=== PATIENT | male | born 1945 | race African-American/Black ===

== ENCOUNTER 2017-11-15 07:08 | Inpatient (IN) | payer OTHER ==
[~2017-11-15] VITALS: Ht 177.8 cm; Wt 91.8 kg
[~2017-11-15 07:08] MED LIST: ACCUPRIL40 MG PO; ASPIR-LOW81 MG PO; DUONEB 2.5-0.5 M3 ML IH; FOSINOPRIL SODI20 MG PO; FOSINOPRIL SODI40 MG PO; K-TAB10 MEQ PO; KEFLEX500 MG PO; KLOR-CON 1010 ME1 PO; LASIX40 MG PO; LOPRESSOR25 MG PO; PERCOCET 5/31 TABLET PO; SILVADENE20 GM TP; TOPROL XL100 MG PO; ZAROXOLYN2.5 MG PO
[2017-11-15 08:18] LABS: HEMATOCRIT 46.3 % (38.0-50.0); HEMOGLOBIN 15.1 G/DL (12.5-16.6); MCH 29.8 PG (29.0-34.0); MCHC 32.6 G/DL (30.0-36.0); MCV 91.5 FL (86-99); PLATELET COUNT 222 K/uL (156-360); RBC DIS.WIDTH-CV 14.2 % (11.8-14.6); RBC DIS.WIDTH-SD 47.2 % (39-53); RED BLOOD COUNT 5.06 M/uL (4.00-5.50); WHITE BLOOD COUNT 13.1 K/uL (4.1-10.2)
[2017-11-15 08:28] LABS: ALBUMIN 3.6 g/dL (3.2-4.8)
[2017-11-15 08:29] LABS: CHLORIDE 99 mEq/L (99-109); POTASSIUM 3.5 mEq/L (3.7-5.4); SODIUM 141 mEq/L (136-147)
[2017-11-15 08:31] LABS: GLUCOSE 165 mg/dL (70-99); TOTAL PROTEIN 7.5 g/dL (6.4-8.3)
[2017-11-15 08:33] LABS: TOTAL BILIRUBIN 0.9 mg/dL (0.0-1.0)
[2017-11-15 08:34] LABS: ALKALINE PHOSPHATASE 96 IU/L (3-129)
[2017-11-15 08:35] LABS: CREATININE 2.4 mg/dL (0.6-1.3); GFR ESTIMATE (CALCULATED) 34 mL/min/ (58.99-99999)
[2017-11-15 08:36] LABS: AST (GOT) 21 IU/L (2-34); UREA NITROGEN (BUN) 38 mg/dL (9-23)
[2017-11-15 08:37] LABS: ALT (GPT) 11 IU/L (3-49)
[2017-11-15 08:40] LABS: TROP-I INTERPRETATION NEGATIVE; TROPONIN-I < 0.01 ng/mL (0.0-0.30)
[2017-11-15] MEDS ORDERED: SPIRIVA18 MCG IH (10:54)
[2017-11-15] MEDS ORDERED: LITE COAT ASPI325 M1 PO (10:54)
[2017-11-15] MEDS ORDERED: MOBIC15 MG PO (10:54)
[2017-11-15 14:37] LABS: TROP-I INTERPRETATION NEGATIVE; TROPONIN-I < 0.01 ng/mL (0.0-0.30)
[2017-11-15 17:42] VITALS: BP 137/62
[2017-11-15 19:17] VITALS: BP 114/70
[2017-11-15 20:27] LABS: TROP-I INTERPRETATION NEGATIVE; TROPONIN-I 0.01 ng/mL (0.0-0.30)
[2017-11-15 23:19] VITALS: BP 99/53
[2017-11-16] VITALS (7 sets, daily range): BP systolic 98–178; BP diastolic 56–98
[2017-11-16 06:13] LABS: HEMATOCRIT 41.7 % (38.0-50.0); HEMOGLOBIN 13.3 G/DL (12.5-16.6); MCH 29.2 PG (29.0-34.0); MCHC 31.9 G/DL (30.0-36.0); MCV 91.4 FL (86-99); PLATELET COUNT 208 K/uL (156-360); RBC DIS.WIDTH-CV 14.2 % (11.8-14.6); RBC DIS.WIDTH-SD 46.9 % (39-53); RED BLOOD COUNT 4.56 M/uL (4.00-5.50); WHITE BLOOD COUNT 15.7 K/uL (4.1-10.2)
[2017-11-16 06:58] LABS: CHLORIDE 100 MEQ/L (99-109); GFR ESTIMATE (CALCULATED) 45 mL/min/ (58.99-99999); GLUCOSE 181 mg/dL (70-99); POTASSIUM 3.7 MEQ/L (3.7-5.4); SODIUM 139 MEQ/L (136-147); UREA NITROGEN (BUN) 41 mg/dL (9-23)
[2017-11-16 07:00] LABS: CREATININE 1.9 MG/DL (0.6-1.3)
[2017-11-17 00:20] VITALS: BP 135/75; BP 144/92
[2017-11-17 02:58] LABS: CHLORIDE 96 mEq/L (99-109); MAGNESIUM 1.8 mg/dL (1.3-2.7); POTASSIUM 3.7 mEq/L (3.7-5.4); SODIUM 138 mEq/L (136-147)
[2017-11-17 03:00] LABS: GLUCOSE 181 mg/dL (70-99)
[2017-11-17 03:03] LABS: PHOSPHORUS 2.6 mg/dL (2.5-4.9)
[2017-11-17 03:04] LABS: CREATININE 1.7 mg/dL (0.6-1.3); GFR ESTIMATE (CALCULATED) 51 mL/min/ (58.99-99999); UREA NITROGEN (BUN) 49 mg/dL (9-23)
[2017-11-17 03:08] LABS: TROP-I INTERPRETATION NEGATIVE; TROPONIN-I 0.02 ng/mL (0.0-0.30)
[2017-11-17 04:29] VITALS: BP 118/82
[2017-11-17 07:49] VITALS: BP 102/55
[2017-11-17 09:00] VITALS: BP 110/78
[2017-11-17] MEDS ORDERED: ZITHROMAX250 MG PO (09:38)
[2017-11-17] MEDS ORDERED: PREDNISONE10 MG PO (09:38)
[2017-11-17] MEDS ORDERED: PROAIR HFA8.5 GM IH (09:39)
== END 2017-11-17 11:30 | disposition home health service (06) | DRG 291 ==
LOC: EME 07:08 → 5SOUTH 11:04 → EDOF 11:04 → ENRESERV 11:07 → 5SOUTH 17:28 → ENPENDDIS 11-17 09:38 → 5SOUTH 11-17 11:30
PROVIDERS: Family Medicine; Hospitalist; Internal Medicine; Internal Medicine Pulmonary Disease; Nurse Practitioner Acute Care
DX: I50.22 Chronic systolic (congestive) heart failure (principal); J96.01 Acute respiratory failure with hypoxia; J44.1 Chronic obstructive pulmonary disease with (acute) exacerbation; F17.200 Nicotine dependence, unspecified, uncomplicated; J20.9 Acute bronchitis, unspecified; J44.0 Chronic obstructive pulmonary disease with (acute) lower respiratory infection; N18.3 Chronic kidney disease, stage 3 (moderate); I13.0 Hypertensive heart and chronic kidney disease with heart failure and stage 1 through stage 4 chronic kidney disease, or unspecified chronic kidney disease; I42.0 Dilated cardiomyopathy; F32.9 Major depressive disorder, single episode, unspecified; F41.9 Anxiety disorder, unspecified; E78.5 Hyperlipidemia, unspecified
CPT/HCPCS: 71046; 71250; 80048; 80053; 83735; 83880; 84100; 84484; 85027; 87040; 87070; 87205; 87502; 93005; 93306; 94640; 94640 76; 94760; 94799; 99202; 99281; 99285; J0696; J1644; J2930; J7030; J7512